=== PATIENT | female | born 1970 | race Caucasian/White ===

== ENCOUNTER 2019-12-20 16:11 | Inpatient (IN) | payer MEDICARE ==
[~2019-12-20] VITALS: Ht 175.3 cm; Wt 81.6 kg
[~2019-12-20 16:11] MED LIST: ANTIVERT25 M1 PO; BENZTROPINE MES1 MG PO; CIPRO500 MG PO; DOXYCYCLINE 10100 MG PO; FLEXERIL PO; NEXIUM40 MG PO; SEROQUEL 25 MG25 M1 PO; VITAMIN D32000 UNI2 PO; ZOFRAN ODT4 MG PO; ZOLOFT25 MG PO
[2019-12-20 16:28] VITALS: BP 132/73
[2019-12-20] MEDS ORDERED: SEROQUEL 100 M100 M1 PO (16:36)
[2019-12-20] MEDS ORDERED: MOBIC7.5 MG PO (16:37)
[2019-12-20] MEDS ORDERED: CLONAZEPAM 0.50.5 M1 PO (16:38)
[2019-12-20] MEDS ORDERED: LYRICA150 MG PO (16:38)
[2019-12-20] MEDS ORDERED: CYMBALTA30 MG PO (16:38)
[2019-12-20] MEDS ORDERED: ULTRAM50 MG PO (16:39)
[2019-12-20] MEDS ORDERED: FUMARATE (16:40)
[2019-12-20 17:25] LABS: INFLUENZA A ANTIGEN Negative (Negative); INFLUENZA B ANTIGEN Negative (Negative)
[2019-12-20] MEDS ORDERED: VENTOLIN HFA 1818 GM INH (18:12)
[2019-12-20 20:12] VITALS: BP 127/70
[2019-12-20 20:17] LABS: ABSOLUTE BASOPHILS 0.1 thou/uL (0.0-0.2); ABSOLUTE EOSINOPHILS 0.1 thou/uL (0.0-0.7); ABSOLUTE LYMPHOCYTES 1.5 thou/uL (0.8-5.3); ABSOLUTE MONOCYTES 0.6 thou/uL (0.0-1.2); ABSOLUTE NEUTROPHILS 4.4 thou/uL (1.6-8.1); BASOPHILS 0.9 %; EOSINOPHILS 1.2 %; HEMATOCRIT 48.7 % (37.0-47.0); HEMOGLOBIN 17.3 gm/dL (12.0-15.0); LYMPHOCYTES 22.4 %; MCH 33.7 pg (26.0-34.0); MCHC 35.5 g/dL (28.0-37.0); MONOCYTES 8.9 %; MPV 7.7 fl. (7.2-11.1); NUCLEATED RBCS 0 /100WBC; PLATELET COUNT* 249 thou/uL (150-400); POLYS 66.6 %; RBC 5.13 mil/uL (4.20-5.00); RDW-CV 14.8 % (10.5-14.5); WBC 6.6 thou/uL (4.0-11.0)
[2019-12-20 20:30] LABS: CALCIUM 8.6 mg/dL (8.5-10.1); CREATININE 0.7 mg/dL (0.6-1.3); POTASSIUM 4.8 mmol/L (3.5-5.1)
[2019-12-20 20:34] LABS: ALBUMIN 3.3 g/dL (3.4-5.0); TOTAL BILIRUBIN 0.7 mg/dL (<0.1-1.0); TOTAL PROTEIN 7.5 g/dL (6.4-8.2)
[2019-12-20 21:43] VITALS: BP 129/71
--- NOTE | 2019-12-21 05:13 | NUR ---
PATIENT ARRIVED ON THE FLOOR ABOUT 2029. PATIENT ADMISSION HISTORY AND ASESSMENT WAS COMPLETED CHARTED. LUNGS ARE COARSE AND WHEEZY. PATIENT IS ON OXYGEN AT 4L PER NASAL CANNULA SATTING 92-93%. IV FLUIDS ARE INFUSING AT 100 ML/HR. WILL CONTINUE TO MONITOR.
[2019-12-21 07:40] VITALS: BP 141/71
[2019-12-21 11:56] LABS: NT-PRO BRAIN NAT PEPTIDE 89 pg/mL (<300)
--- NOTE | 2019-12-21 13:04 | 2DMMODE ---
[place] [address] 2 D/M-MODE ECHOCARDIOGRAM Name: JENNIFER SANTORITA Cotto Room: [address] IN .R.#: [id number] Admission: 12/20/19 Attend Phys: Selene Medeiros, Discharge: Date of : 68 Date of Service: 12/21/19 1303 Report #: [id number] THIS REPORT FOR: cc: Kevin Salgado MD, Matthew D MD Holkins,Lucius Felix MD [facility] ~ APPROVED REPORT Study performed: 12/21/2019 11:26:32 EXAM: Comprehensive 2D, Doppler, and color-flow Echocardiogram Patient Location: In-Patient Room #: [facility] Status: routine BSA: 1.83 HR: 97 bpm BP: 141/71 mmHg Rhythm: NSR Other Information Study Quality: Good Indications COPD Dyspnea 2D Dimensions IVSd: 11.89 (7-11mm) LVOT Diam: 19.50 (18-24mm) LVDd: 43.79 mm PWd: 10.30 (7-11mm) Ascending Ao: 30.86 (22-36mm) LVDs: 22.94 (25-40mm) Aortic Root: 32.25 mm Volumes Left Atrial Volume (Systole) LA ESV Index: 19.40 mL/m2 Aortic Valve AoV Peak Sumanth.: 1.81 m/s AO Peak Gr.: 13.09 mmHg LVOT Max P.14 mmHg AO Mean Gr.: 6.59 mmHg LVOT Mean P.08 mmHg LVOT Max V: 1.43 m/s AO V2 VTI: 33.41 cm LVOT Mean V: 0.93 m/s NASIR (VTI): 2.29 cm2 LVOT V1 VTI: 25.65 [place] [address] 2 D/M-MODE ECHOCARDIOGRAM Name: ANAHI SANTO Room: [address] IN ..#: [id number] Admission: 12/20/19 Attend Phys: Selene Medeiros, Discharge: Date of : 68 Date of Service: 12/21/19 1303 Report #: [id number] Mitral Valve E/A Ratio: 0.95 MV Decel. Time: 165.76 ms MV E Max Sumanth.: 0.95 m/s MV PHT: 48.07 ms MVA (PHT): 4.58 cm2 TDI E/Lateral E': 6.33 E/Medial E': 7.31 Medial E' Sumanth.: 0.13 m/s Lateral E' Sumanth.: 0.15 m/s Pulmonary Valve PV Peak Sumanth.: 1.23 m/s PV Peak Gr.: 6.01 mmHg Tricuspid Valve RAP Estimate: 5.00 mmHg TR Peak Gr.: 26.23 mmHg RVSP: 31.00 mmHg PA Pressure: 31.00 mmHg Left Ventricle The left ventricle is normal size. There is normal LV segmental wall motion. There is normal left ventricular wall thickness. Left ventricular systolic function is normal. The left ventricular ejection fraction is within the normal range. LVEF is 65%. The left ventricular diastolic function is normal. Right Ventricle The right ventricle is normal size. The right ventricular systolic function is normal. Atria The left atrium size is normal. The right atrium size is normal. Aortic Valve The aortic valve is normal in structure. No aortic regurgitation is present. There is no aortic valvular stenosis. Mitral Valve The mitral valve is normal in structure. There is no mitral valve regurgitation noted. No evidence of mitral valve stenosis. Tricuspid Valve The tricuspid valve is normal in structure. [place] [address] 2 D/M-MODE ECHOCARDIOGRAM Name: ANAHI SANTO Yadiel Room: [address] IN [facility]#: [id number] Admission: 12/20/19 Attend Phys: Selene Medeiros, Discharge: Date of : 68 Date of Service: 12/21/19 1303 Report #: [id number] regurgitation. Mild pulmonary hypertension. Mild tricuspid regurgitation. Pulmonic Valve The pulmonary valve is normal in structure. Trace pulmonic regurgitation. Great Vessels The aortic root is normal in size. IVC is normal in size and collapses >50% with inspiration. Pericardium There is no pericardial effusion. <Conclusion> The left ventricle is normal size. There is normal left ventricular wall thickness. Left ventricular systolic function is normal. The left ventricular ejection fraction is within the normal range. LVEF is 65%. The left ventricular diastolic function is normal. The right ventricle is normal size. The left atrium size is normal. The aortic valve is normal in structure. The mitral valve is normal in structure. The tricuspid valve is normal in structure. Mild tricuspid regurgitation. Mild pulmonary hypertension. IVC is normal in size and collapses >50% with inspiration. There is no pericardial effusion. There is normal LV segmental wall motion. <ELECTRONICALLY SIGNED> By: Lucius Chavez MD, FACC 12/21/19 1303 130 130 Lucius Chavez MD, FACC /INF
--- NOTE | 2019-12-21 14:32 | NUR ---
Pt lives in an apt. alone. Pt has support in dtr, family, friend. And in home through [employer]. Pt has RW. Possible home oxygen needs to be determined. SW to continue to follow to assist with safe dc planning.
[2019-12-21 16:00] VITALS: BP 129/65
--- NOTE | 2019-12-21 16:10 | NUR ---
PATIENT UP WITH SBA. IVF SL THIS SHIFT. STEROIDS DECREASED TO BID. [address]. TRAMADOL GIVEN X 1 PRN FOR BODY ACHES. PT/OT. PATIENT HAD CT THIS AFTERNOON, AWAITING RESULTS. RVP PENDING.
[2019-12-21 19:40] VITALS: BP 122/62
--- NOTE | 2019-12-22 05:44 | NUR ---
PT ALERT AND ORIENTED. PT SEEMED FORGETFUL SHE TOLD TECH THAT SHE HAVE NOT SLEPT ALL NIGHT. HOWEVER, PT SLEPT MOST OF SHIFT AND WAS EVEN SNORING. VSS ON 2.5L NC. HR WAS TACHY PT JUST RECIEVED BREATHING TRT PRIOR TO ASSESSMENT. MEDS GIVEN PER EMAR. TRAMADOL GIVEN FOR CAMARENA. RELIEVE NOTED. LH IV SL. FALL PRECAUTION IN PLACE. PT ON STANDBY ASSIST. RT ORDERED. CALL LIGHT WITHIN REACH. HOURLY ROUNDINGS MADE. WILL CONTINUE TO MONITOR.
[2019-12-22 08:05] VITALS: BP 138/70
[2019-12-22 14:47] VITALS: BP 138/70
--- NOTE | 2019-12-22 14:50 | NUR ---
Pt to dc home today. Pt in need of oxygen at home; [place] arranged with pt preference of [facility] to deliver to pt room prior to pt dc home. [facility] [phone]
[2019-12-22 15:09] VITALS: BP 138/70
[2019-12-22] MEDS ORDERED: PREDNISONE 10 M10 MG PO (15:26)
[2019-12-22] MEDS ORDERED: SPIRIVA18 MCG INH (15:28)
[2019-12-22] MEDS ORDERED: ADVAIR HFA 115-12 G1 INH (15:29)
[2019-12-22] MEDS ORDERED: LEVAQUIN 500 M500 M3 PO (15:30)
--- NOTE | 2019-12-22 16:15 | NUR ---
I have reviewed the documentation by LYNDSEY ZHENG from 12/22/19 to 12/22/19 and I concur with it. KENYON GEORGE
[2019-12-22 17:48] VITALS: BP 138/70
--- NOTE | 2019-12-22 18:11 | NUR ---
PT. DISCHARGE TO HOME PRIOR TO O.T. EVAL. PLEASE ORDER FURTHER O.T. SERVICES IF NEEDED.
--- NOTE | 2019-12-23 12:42 | CON ---
[address] [address] CONSULTATION Name: ANAHI SANTO Yadiel Room: [address] IN M.R.#: [id number] Admission: 12/20/19 Attend Phys: Selene Medeiros MD Discharge: 12/22/19 Date of : 68 Report #: [id number] THIS REPORT FOR: //name// cc: Kevin Salgado MD, Matthew D MD ~ THIS REPORT FOR: //name// CC: Selene Salgado DATE OF SERVICE: 12/22/2019 INFECTIOUS DISEASE CONSULTATION ATTENDING PHYSICIAN: Kirk Grant MD. REASON FOR EVALUATION: Interstitial pneumonitis. HISTORY OF PRESENT ILLNESS: Chart reviewed, patient examined. This is a 49-year-old with known history of underlying lung disease as described, COPD and was admitted through the Emergency Room with complaints of fever, had onset of cough, minimally productive, did have some dyspnea and was confirmed to be hypoxemic. She noted onset about 3 weeks prior to the admission. She describes herself as disabled, has minimal exposure history, is at this point. No animal exposure, no recent travel. In addition to that, she had complained of chills, shakes, sore throat, nausea. She is empirically started on levofloxacin. Clinically, she is significantly improved. Subjectively, she is still maintained on supplemental oxygen at 2 liters per nasal cannula. ALLERGIES: MEPERIDINE. CURRENT MEDICATIONS: Include methylprednisolone, budesonide, levofloxacin, tramadol, nicotine, quetiapine, ipratropium, albuterol inhaler, duloxetine, pregabalin, clonazepam, meloxicam, meclizine, cholecalciferol. PAST MEDICAL HISTORY: History of COPD, celiac disease, arthritis, seizure disorder, depression, previous tonsillectomy. SOCIAL HISTORY: Smoked 25 years, quit fairly recently. No illicit drug use. No ethanol. FAMILY HISTORY: Noncontributory. REVIEW OF SYSTEMS: She had some anorexia, which is resolved. Denies significant gastrointestinal-related complaints at this point. Her weight has been stable. Otherwise, unremarkable 10-point [place] [address] CONSULTATION Name: ANAHI SANTO Yadiel Room: [address]#: [id number] Admission: 12/20/19 Attend Phys: Selene Medeiros MD Discharge: 12/22/19 Date of : 68 Report #: [id number] PHYSICAL EXAMINATION: GENERAL: She appears in [id number] distress secondary to her breathing. She is somewhat lethargic, seems to be generally lucid. VITAL SIGNS: Temperature 98, pulse 101, respirations 18, blood pressure 130/70. SKIN: Warm, dry, no rashes. HEENT: Normocephalic. Extraocular muscles intact. Nasal cannula oxygen. NECK: Supple. LUNGS: Scattered coarse sounds, does have some expiratory wheezes. HEART: Borderline tachycardic, regular. I do not appreciate murmur. ABDOMEN: Soft. She is obese, nontender. No peritoneal signs. GENITOURINARY: Deferred. RECTAL: Deferred. LABORATORY DATA: Influenza antigen rapid test was negative for A and B. Chest x-ray showed no acute abnormalities; however, CT of the chest did describe emphysematous changes with patchy, mild, nonspecific bilateral upper lobe interstitial opacities. There is question of pneumonitis. CT abdomen and pelvis showed no focal inflammatory processes, rather acute issues. ProBNP of 89. Sed rate of 8. Echo showed normal LV size, EF of 65%. There are no significant valvular abnormalities. Electrolytes: Sodium 135, potassium 4.8, chloride 95, bicarbonate is 32, anion gap of 8, BUN and creatinine 5 and 0.7. ALT of 28, AST of 24, albumin 3.3, total protein 7.5. Estimated GFR of 89. CBC: White count of 6.6, H and H 17.3 and 48.7, platelets of 249. Differential unremarkable. ASSESSMENT: Pneumonitis complicated by respiratory failure. Would be concerned about atypical or viral etiology, in the sense, seemingly improved on the ciprofloxacin. Did encourage her to follow up with sputum if able. We will see her in followup, see how she responds clinically to the empiric treatment at this point. We would consider bronchoscopy if fails to resolve, lack of ability to produce any kind of a specimen to culture. <ELECTRONICALLY SIGNED> By: Oracio Cornelius MD 12/23/19 1242 [id number] [id number] Cornelius MD /nt
--- NOTE | 2019-12-23 13:56 | EKG ---
[place] [address] ELECTROCARDIOGRAM REPORT Name: ANAHI SANTO Room: [address] IN [facility]#: [id number] Admission: 12/20/19 Attend Phys: Selene Medeiros, Discharge: 12/22/19 Date of : 68 Date of Service: 12/20/191911 Report #: [id number] THIS REPORT FOR: cc: Kevin Salgado MD, Matthew D MD Holkins,Lucius Felix MD [facility] ~ THIS REPORT FOR: //name// [facility] ED Test Date: 2019-12-20 Test Time: 19:12:16 Pat Name: ANAHI SANTO Department: Room: [facility] Gender: F Cytogenetics Technologist: [place] : 1970 Requested By: Florian Alcaraz Order Number: [id number] MD: Lucius Chavez Measurements Intervals [place] Rate: 89 P: 55 IN: 150 QRS: 123 QRSD: 84 T: 56 QT: 360 QTc: 439 Interpretive Statements Sinus rhythm Left posterior fascicular block Compared to ECG 06/07/2015 10:34:58 Left posterior fascicular block now present Sinus tachycardia no longer present T-wave abnormality no longer present Electronically Signed On 12-21-2019 16:06:30 FLORAL MERCHANDISER by Lucius Chavez [email or web address] <ELECTRONICALLY SIGNED> By: Lucius Chavez MD, [facility] 12/21/19 1606 11 11 Lucius Chavez MD, [facility] /EPI
[2019-12-26 23:10] LABS: ADENOVIRUS Negative (Negative); INFLUENZA A Negative (Negative); INFLUENZA B Negative (Negative); METAPNEUMOVIRUS Negative (Negative); PARAINFLUENZA 1 Negative (Negative); PARAINFLUENZA 2 Negative (Negative); PARAINFLUENZA 3 Negative (Negative); RHINOVIRUS Negative (Negative); RSV A Negative (Negative); RSV B Negative (Negative)
== END 2019-12-22 17:30 | disposition home or self-care (01) | DRG 193 ==
LOC: M.ERS 16:11 → M.3W 19:11 → M.TBA-ER 19:11 → M.3W 20:30
PROVIDERS: Emergency Medicine Emergency Medical Services; Internal Medicine; ADMIT Internal Medicine
DX: J18.9 Pneumonia, unspecified organism (principal); J96.01 Acute respiratory failure with hypoxia; J44.0 Chronic obstructive pulmonary disease with (acute) lower respiratory infection; J44.1 Chronic obstructive pulmonary disease with (acute) exacerbation; G47.33 Obstructive sleep apnea (adult) (pediatric); F32.9 Major depressive disorder, single episode, unspecified; F25.9 Schizoaffective disorder, unspecified; M19.90 Unspecified osteoarthritis, unspecified site; K90.0 Celiac disease; G40.909 Epilepsy, unspecified, not intractable, without status epilepticus; G62.9 Polyneuropathy, unspecified; D75.1 Secondary polycythemia; J20.8 Acute bronchitis due to other specified organisms; J32.9 Chronic sinusitis, unspecified; Z60.2 Problems related to living alone; F17.210 Nicotine dependence, cigarettes, uncomplicated; Z79.899 Other long term (current) drug therapy; Z88.5 Allergy status to narcotic agent; Z82.5 Family history of asthma and other chronic lower respiratory diseases